=== PATIENT | male | born 1985 | race Two or more races ===

== ENCOUNTER 2025-05-27 23:12 | Emergency (ER) | payer OTHER ==
[~2025-05-27] VITALS: Ht 167.6 cm; Wt 74.4 kg
[~2025-05-27 23:12] MED LIST: ALBU8.5H8 INH; AZIT250T PO; GUAI600T31 PO
[2025-05-27 23:15] VITALS: BP 123/85; TEMP 98
[2025-05-27] MEDS ORDERED: CIPROFLOXACIN HCL 500 MG TABLET ONE (23:22)
[2025-05-27] MEDS: CIPROFLOXACIN HCL 250 MG TABLET PO ONE (23:26)
[2025-05-27 23:30] VITALS: O2SAT 100
[2025-05-28] MEDS: AZITHROMYCIN 250 MG TABLET PO ONE (00:11)
[2025-05-28] MEDS ORDERED: AZITHROMYCIN 250 MG TABLET ONE (00:11)
== END 2025-05-28 01:46 | disposition home or self-care (01) ==
LOC: ER 23:16
DX: Z13.89 Encounter for screening for other disorder (principal); E11.9 Type 2 diabetes mellitus without complications